=== PATIENT | male | born 1945 | race Hispanic/Latino ===

== ENCOUNTER → 2024-12-17 | Outpatient (CLI) | payer MEDICARE ==
--- NOTE | 2024-12-17 20:13 | HMCSR ---
APPROVED REPORT EXAM: Two-dimensional and M-mode echocardiogram with Doppler and color Doppler. INDICATION ICD: I49.3 Premature ventricular complexes 2D Dimensions RVDd4.2 cmLVEF(%)52.4 (>50%)LVED Vol(simp.)81.0 mL IVSd0.9 (0.7-1.1cm)FS(%)27 %LVES Vol(simp.)37.0 mL LVDd5.4 (3.8-5.6cm)LA (2D)5.0 (1.6-4.0cm)LVEF(%, simp.)54 % PWd0.9 (0.7-1.1cm)Ao Root(2D)3.9 (2.0-3.7cm)LA ESV INDEX (BP)25.68 mL/m2 IVSs0.9 cmLVOT diam2.7 (1.8-2.4cm) LVDs4.0 (2.5-4.0cm) PWs1.6 cm M-Mode Dimensions EPSS0.4 cm LA (MM)4.7 (1.6-4.0cm) Ao Root(MM)3.7 (2.0-3.7cm) Aortic Valve AoV Vmax1.7 m/Adriana Peak GR12.2 mmHgLVOT Vmax0.8 m/s AoV VTI0.4 mAo Mean GR6.8 mmHgLVOT VTI0.19 m ANTONY (VMAX)2.78 cm2AVA (VTI) 2.9 cm2 Mitral Valve MV E Vmax44.4 cm/sDECEL Msux274 ms MV A Vmax73.4 cm/sP 1/2 T74 ms E/A ratio0.6MVA (PHT)3.0 cm2 TDI E/E' Medial8.6E/E' Lateral5.9 Medial E' Peak V5.18 cm/sLateral E' Peak V7.49 cm/s Pulmonary Valve PV Vmax0.9 m/sPV VTI0.19 mPV Mean GR1.9 mmHg PV Peak GR3.3 mmHgPI End Olena. Roge 100.1 cm/s Tricuspid Valve TR Vmax1.2 m/sRAP (EST) 3 mmHgRVSP8.9 mmHg TR Peak GR5.9 mmHg Left Ventricle The left ventricle is normal size. Mid inferoseptal hypokinesis. Inferobasal hypokinesis. There is no rmal left ventricular wall thickness. LVEF is 55%. Stage I diastolic dysfunction. Right Ventricle The right ventricle is mildly dilated. The right ventricular systolic function is normal. RV FAC 51%. Atria The left atrium size is dilated with LAd of 5.0 cm. Cannot exlude a PFO by color doppler (present in 25% of adults). The right atrium size is normal. Aortic Valve Aortic valve is trileaflet and opens well. No aortic regurgitation is present. There is no aortic venancio vular stenosis. Mitral Valve The mitral valve is normal in structure. There is trace of mitral valve regurgitation noted. There is no mitral valve stenosis. Tricuspid Valve The tricuspid valve is normal in structure. There is trivial tricuspid valve regurgitation noted. Pulmonic Valve The pulmonary valve is normal in structure. There is trace of pulmonic valvular regurgitation. Great Vessels The aortic root is normal in size. The IVC is normal in size and collapses >50% with inspiration. Pericardium There is no pericardial effusion. Other Information Quality : Adequate Conclusion The left atrium size is dilated with LAd of 5.0 cm. There is normal left ventricular wall thickness. Mid inferoseptal hypokinesis. Inferobasal hypokinesis. LVEF is 55%. Stage I diastolic dysfunction. Aortic valve is trileaflet and opens well. There is trace of mitral valve regurgitation noted. There is no pericardial effusion. Cannot exlude a PFO by color doppler (present in 25% of adults).
== END | disposition home or self-care (01) ==
LOC: RAH 13:40
PROVIDERS: ATTEND Internal Medicine
DX: I49.3 Ventricular premature depolarization (principal)
CPT/HCPCS: 93306

== ENCOUNTER → 2025-01-09 | Outpatient (CLI) | payer MEDICARE ==
[~2025-01-09] MED LIST: REGADENOSON 0.4 MG/5 ML PF SYG IVP ONE
--- NOTE | 2025-01-09 16:46 | HMCSR ---
APPROVED REPORT TEST INDICATIONS VENTRICULAR PREMATURE DEPOLARIZATION The imaging protocol used to acquire images was Rest Tc-99m/stress Tc-99m 1 day Consent: The procedure was explained and understood by the patient. Informerd consent was witnessed Shu Martinez Jr (N)(ARRT) First, low dose stress was performed then high dose rest. RESTING DATA: The resting ekg shows: NSR Rest SPECT myocardial perfusion imaging was performed in supine position minutes following the intra venous injection of 10 mCi of Tc-99 Sestamibi. Time of rest injection: 08 Date: 01/09/2025 PHARMACOLOGIC STRESS: Pharmacologic stress test was performed by injecting regadenoson 0.4 mg IV push followed by the intra venous injection of 27 mCi of Tc-99 Sestamibi. Time of stress injection: 1015 Date: 01/09/2025 Heart Rate at time of stress injection: 64 bpm. The images were gated to evaluate regional wall motion and calculate left ventricular ejection fracti on. STRESS DETAILS Reason for Termination: Infusion complete Stress Symptoms: Dyspnea Max HR Achieved: 88 bpm % of APMHR Achieved: 74 Max Blood Pressure: 133/82 mmHg Stress ECG: NSR LV PERFUSION Reverse redistribution artifact of the inferoseptal and apical mahajan. No clear-cut evidence of ische marisa present. EF of 68% Low risk stress test as above. Conclusion Reverse redistribution artifact of the inferoseptal and apical mahajan. No clear-cut evidence of ische marisa present. EF of 68% Low risk stress test as above.
== END | disposition home or self-care (01) ==
LOC: RAH 08:21 → EDUNIT# 09:00
PROVIDERS: ATTEND Internal Medicine
DX: I49.3 Ventricular premature depolarization (principal); R06.09 Other forms of dyspnea; H26.9 Unspecified cataract; E78.2 Mixed hyperlipidemia; E03.8 Other specified hypothyroidism; R73.01 Impaired fasting glucose; N40.0 Benign prostatic hyperplasia without lower urinary tract symptoms; Z68.27 Body mass index [BMI] 27.0-27.9, adult
CPT/HCPCS: 78452; 93017; J2785; A9500 ×2